=== PATIENT | male | born 2000 | race Caucasian/White ===

== ENCOUNTER 2020-03-19 17:43 | Emergency (ER) | payer OTHER ==
[~2020-03-19] VITALS: Ht 190.5 cm; Wt 97.5 kg
[2020-03-19 17:55] VITALS: Ht 190.5 cm; Wt 97.5 kg
[2020-03-19 18:11] VITALS: BP 145/58
== END 2020-03-19 18:11 | disposition other institution (70) ==
LOC: ED 17:43
DX: Z02.89 Encounter for other administrative examinations (principal)